=== PATIENT | male | born 1960 | race Hispanic/Latino ===

== ENCOUNTER 2018-07-24 17:19 | Inpatient (IN) | payer SELFPAY ==
[2018-07-24 18:15] LABS: Absolute Lymphocytes (CBC) 0.8 K/uL (0.7-4.9); Absolute Monocytes 0.3 K/uL (0.1-1.3); Absolute Neutrophil 1.9 K/uL (1.8-8.0); Basophils % 0.7 % (0-1.3); Eosinophils % 0.9 % (0-4.4); Hematocrit 45.3 % (39.6-49.0); Lymphocytes % 25.6 % (15.3-44.8); MPV 8.9 fL (7.6-11.3); Monocytes % 10.3 % (3.3-12.3); RBC Red Blood Cell Count 5.22 M/uL (4.33-5.43)
[2018-07-24 18:38] LABS: Albumin 3.4 g/dL (3.4-5.0); Alkaline Phosphatase 453 U/L (45-117); BUN Blood Urea Nitrogen 15 mg/dL (7-18); Bicarbonate 30 mmol/L (21-32); Bilirubin Direct 1.8 mg/dL (0-0.2); Bilirubin Total 2.8 mg/dL (0.2-1.0); Glucose Level 294 mg/dL (74-106); Lipase 187 U/L (73-393); Potassium 3.9 mmol/L (3.5-5.1); Protein, Total 7.3 g/dL (6.4-8.2); Sodium Level 133 mmol/L (136-145)
[2018-07-24 18:49] LABS: ALT/SGPT 406 U/L (12-78); AST/SGOT 373 U/L (15-37)
--- NOTE | 2018-07-24 18:52 | RAD REPORT ---
EXAM DESCRIPTION: US - Abdomen Exam Limited - 07/24/2018 6:15 pm CLINICAL HISTORY: ABD PAIN COMPARISON: No comparisons FINDINGS: The gallbladder demonstrates no gallstones. Gallbladder wall is thickened to 6 mm. The com mon bile duct is normal measuring 4 mm. The liver demonstrates no findings of intrahepatic biliary dilatation. IMPRESSION: Gallbladder wall thickening is present, nonspecific finding. This can be result hypoalbu minemia or underlying liver disease.
[2018-07-24] MEDS ORDERED: NA CHLORIDE 0.9% 1,000 ML ONE (19:10)
--- NOTE | 2018-07-24 19:23 | ER ---
Nurse's Notes [facility] Name: Baljinder Crawford Age: 58 yrs Sex: Male : 1960 Arrival Date: 07/24/2018 Time: 17:24 Bed 30 Private MD: Diagnosis: Abnormal results of liver function studies;Upper abdominal pain, unspecified Presentation: 07/24 17:35 Presenting complaint: Patient states: Sent to ER to be evaluated after clinic showed aj elevated liver enzymes on routine lab work. Transition of care: patient was not received from another setting of care. Onset of symptoms. Risk Assessment: Do you want to hurt yourself or someone else? Patient reports no desire to harm self or others. Initial Sepsis Screen: Does the patient meet any 2 criteria? No. Patient's initial sepsis screen is negative. Does the patient have a suspected source of infection? No. Patient's initial sepsis screen is negative. Care prior to arrival: None. 17:35 Method Of Arrival: Ambulatory aj 17:35 Acuity: CELESTINA 3 aj Triage Assessment: 17:36 General: Appears in no apparent distress. comfortable, Behavior is calm, cooperative, aj appropriate for age. Pain: Denies pain. Neuro: Level of Consciousness is awake, alert, obeys commands, Oriented to person, place, time, situation, Appropriate for age. Respiratory: Airway is patent Respiratory effort is even, unlabored, Respiratory pattern is regular, symmetrical. Derm: Skin is intact, is healthy with good turgor, Skin is pink, warm \T\ dry. normal. Historical: - Allergies: 17:36 No Known Allergies; aj - PMHx: 17:36 Hypertension; Diabetes - NIDDM; aj - PSHx: 17:36 None; aj - Immunization history:: Adult Immunizations up to date. - Social history:: Smoking status: Patient/guardian denies using tobacco, Patient uses alcohol, on a daily basis. - Ebola Screening: : Patient negative for fever greater than or equal to 101.5 degrees Fahrenheit, and additional compatible Ebola Virus Disease symptoms Patient denies exposure to infectious person Patient denies travel to an Ebola-affected area in the 21 days before illness onset No symptoms or risks identified at this time. Screenin:40 Abuse screen: Denies threats or abuse. Denies injuries from another. Nutritional ca1 screening: No deficits noted. Tuberculosis screening: No symptoms or risk factors identified. Fall Risk None identified. Assessment: 17:40 General: Appears in no apparent distress. uncomfortable, Behavior is calm, cooperative, ca1 appropriate for age, Tiana, RN at bedside to translate. . Pain: Complains of pain in Upper abdomen. Pain does not radiate. Pain currently is 3 out of 10 on a pain scale. Neuro: Level of Consciousness is awake, alert, obeys commands, Oriented to person, place, time, situation. Cardiovascular: Heart tones S1 S2 present Patient's skin is warm and dry. Respiratory: Airway is patent Respiratory effort is even, unlabored, Respiratory pattern is regular, symmetrical. GI: Abdomen is round non-distended, Bowel sounds present X 4 quads. Abd is soft Abdomen is tender to palpation in right upper quadrant and left upper quadrant. GI: Patient currently denies constipation, diarrhea, nausea. : No signs and/or symptoms were reported regarding the genitourinary system. EENT: No signs and/or symptoms were reported regarding the EENT system. Derm: Skin is intact, is healthy with good turgor, Skin is pink, warm \T\ dry. Musculoskeletal: Circulation, motion, and sensation intact. 18:23 Reassessment: US at bedside. ca1 18:50 Reassessment: Received a call from lab with critical levels. Notified ZINA Garrett of rb1 critical AST 373, ALT 406. 19:14 Reassessment: Patient appears in no apparent distress at this time. Patient and/or ca1 family updated on plan of care and expected duration. Pain level reassessed. Patient is alert, oriented x 3, equal unlabored respirations, skin warm/dry/pink. 20:20 Reassessment: Patient appears in no apparent distress at this time. Patient is alert, rr5 oriented x 3, equal unlabored respirations, skin warm/dry/pink. awaiting for CT with contrast at 2120H Patient denies pain at this time. 21:40 Reassessment: Patient appears in no apparent distress at this time. Patient is alert, rr5 oriented x 3, equal unlabored respirations, skin warm/dry/pink. informed the patient no metformin for 48 hours. they will bring their home medication to confirm if he is taking metformin, he cannot recall the name of the drug. no complaints made. Patient denies pain at this time. Patient states feeling better. Patient states symptoms have improved. Vital Signs: 17:36 BP 154 / 84; Pulse 87; Resp 20; Temp 98.5; Pulse Ox 97% on R/A; Weight 89.81 kg; Height aj 5 ft. 10 in. (177.80 cm); 18:30 BP 129 / 79; Pulse 91; Resp 18; Pulse Ox 98% ; ca1 19:15 BP 154 / 88; Pulse 77; Resp 16 S; Pulse Ox 97% on R/A; rv 20:27 BP 136 / 85; Pulse 83; Resp 17; Pulse Ox 96% ; Pain 0/10; rr5 21:53 BP 126 / 71; Pulse 80; Resp 17; Pulse Ox 99% ; Pain 0/10; rr5 17:36 Body Mass Index 28.41 (89.81 kg, 177.80 cm) aj ED Course: 17:24 Patient arrived in ED. rg4 17:36 No Stack, JOSETTE is Primary Nurse. ca1 17:36 Triage completed. aj 17:36 Arm band placed on left wrist. Patient placed in an exam room. aj 17:37 Tami Metzger FNP-C is PHCP. kb 17:37 Johann Abraham MD is Attending Physician. kb 17:40 Patient has correct armband on for positive identification. Placed in gown. Bed in low ca1 position. Call light in reach. Side rails up X 1. Pulse ox on. NIBP on. Warm blanket given. 17:58 Initial lab(s) drawn, by id, sent to lab. Inserted saline lock: 20 gauge in left tm3 antecubital area, using aseptic technique. 18:18 US Abdomen Limited In Process Unspecified. EDMS 18:50 Notified Nurse Practitioner and/or Physician Human Resources Operations Specialist of a critical lab result(s), AST ca1 373, ALT 406. 18:59 Oral contrast given. vm2 19:23 Domingo Ge MD is Hospitalizing Provider. kb 20:[address] vm2 21:11 CT completed. Patient tolerated procedure well. Patient moved back from CT. vm2 21:50 No provider procedures requiring assistance completed. Patient admitted, IV remains in rr5 place. intact, No redness/swelling at site. Administered Medications: 18:58 Drug: NS 0.9% 1000 ml Route: IV; Rate: 1000 ml; Site: left antecubital; ca1 20:27 Follow up: Response: No adverse reaction; IV Status: Completed infusion; IV Intake: rr5 1000ml Intake: 20:27 IV: 1000ml; Total: 1000ml. rr5 Outcome: 19:23 Decision to Hospitalize by Provider. kb 21:50 Admitted to Med/surg accompanied by tech, via wheelchair, room 211, with chart, Report rr5 called to carut 21:50 Condition: stable 21:50 Instructed on the need for admit. 22:15 Patient left the ED. fc Signatures: Dispatcher [employer] ED[facility] Tami Metzger, CUSTOM DECORATING CONSULTANT-C CUSTOM DECORATING CONSULTANT-Ckb Taj Khan tm3 Anika Sheets, RN RN Cat Sanches RN RN Peri Carreon, RN RN rb1 Carla Lancaster rg4 Maylin Orellana 2 Hernandez Pacheco RN RN rv Charli Doss RN RN rr5 No Stack RN RN ca1 Corrections: (The following items were deleted from the chart) 18:53 18:50 Reassessment: Notified ZINA Garrett of critical AST 373, ALT 406. rb1 rb1
--- NOTE | 2018-07-24 19:23 | EDPHYS ---
Physician Documentation [facility] Name: Baljinder Crawford Age: 58 yrs Sex: Male : 1960 Arrival Date: 07/24/2018 Time: 17:24 Bed 30 Private MD: ED Physician Johann Abraham HPI: 07/24 17:47 This 58 yrs old Male presents to ER via Ambulatory with complaints of Abnormal kb Lab Results. 17:47 Pt reports he just started seeing a doctor and was diagnosed with diabetes and kb hypertension. States they did routine blood work and started him on medications for diabetes and hypertension. Was told to come to the ER for evaluation due to abnormal liver tests. Severity of symptoms: At their worst the symptoms were mild in the emergency department the symptoms are unchanged. The patient has not experienced similar symptoms in the past. The patient has been recently seen by a physician: the patient's primary care provider, earlier today. Historical: - Allergies: 17:36 No Known Allergies; aj - PMHx: 17:36 Hypertension; Diabetes - NIDDM; aj - PSHx: 17:36 None; aj - Immunization history:: Adult Immunizations up to date. - Social history:: Smoking status: Patient/guardian denies using tobacco, Patient uses alcohol, on a daily basis. - Ebola Screening: : Patient negative for fever greater than or equal to 101.5 degrees Fahrenheit, and additional compatible Ebola Virus Disease symptoms Patient denies exposure to infectious person Patient denies travel to an Ebola-affected area in the 21 days before illness onset No symptoms or risks identified at this time. ROS: 17:47 Constitutional: Negative for fever, chills, and weight loss, Neck: Negative for injury, kb pain, and swelling, Cardiovascular: Negative for chest pain, palpitations, and edema, Respiratory: Negative for shortness of breath, cough, wheezing, and pleuritic chest pain, Abdomen/GI: Negative for abdominal pain, nausea, vomiting, diarrhea, and constipation, MS/Extremity: Negative for injury and deformity, Skin: Negative for injury, rash, and discoloration, Neuro: Negative for headache, weakness, numbness, tingling, and seizure. Exam: 17:47 Constitutional: This is a well developed, well nourished patient who is awake, alert, kb and in no acute distress. Head/Face: Normocephalic, atraumatic. Chest/axilla: Normal chest wall appearance and motion. Nontender with no deformity. No lesions are appreciated. Cardiovascular: Regular rate and rhythm with a normal S1 and S2. No gallops, murmurs, or rubs. Normal PMI, no JVD. No pulse deficits. Respiratory: Lungs have equal breath sounds bilaterally, clear to auscultation and percussion. No rales, rhonchi or wheezes noted. No increased work of breathing, no retractions or nasal flaring. Skin: Warm, dry with normal turgor. Normal color with no rashes, no lesions, and no evidence of cellulitis. MS/ Extremity: Pulses equal, no cyanosis. Neurovascular intact. Full, normal range of motion. Neuro: Awake and alert, GCS 15, oriented to person, place, time, and situation. Cranial nerves II-XII grossly intact. Motor strength 5/5 in all extremities. Sensory grossly intact. Cerebellar exam normal. Normal gait. 17:47 Abdomen/GI: Inspection: abdomen appears normal, Bowel sounds: normal, in all quadrants, kb Palpation: soft, in all quadrants, mild abdominal tenderness, in the right upper quadrant and left upper quadrant. Vital Signs: 17:36 BP 154 / 84; Pulse 87; Resp 20; Temp 98.5; Pulse Ox 97% on R/A; Weight 89.81 kg; Height aj 5 ft. 10 in. (177.80 cm); 18:30 BP 129 / 79; Pulse 91; Resp 18; Pulse Ox 98% ; ca1 19:15 BP 154 / 88; Pulse 77; Resp 16 S; Pulse Ox 97% on R/A; rv 20:27 BP 136 / 85; Pulse 83; Resp 17; Pulse Ox 96% ; Pain 0/10; rr5 21:53 BP 126 / 71; Pulse 80; Resp 17; Pulse Ox 99% ; Pain 0/10; rr5 17:36 Body Mass Index 28.41 (89.81 kg, 177.80 cm) aj MDM: 17:37 Patient medically screened. kb 17:46 Data reviewed: vital signs, nurses notes. Data interpreted: Pulse oximetry: on room air kb is 97 %. Interpretation: normal. 19:21 Counseling: I had a detailed discussion with the patient and/or guardian regarding: the kb historical points, exam findings, and any diagnostic results supporting the discharge/admit diagnosis, lab results, radiology results, the need for further work-up and treatment in the hospital. Physician consultation: Domingo Ge MD was contacted at 19:22, regarding admission, to the medical/surgical unit. and will see patient in ED, shortly. Admission orders: after a detailed discussion of the patient's condition and case, the admit orders are written by ca. 07/24 17:46 Order name: Basic Metabolic Panel; Complete Time: 18:50 kb 07/24 17:46 Order name: CBC with Diff; Complete Time: 18:19 kb 07/24 17:46 Order name: Hepatic Function; Complete Time: 18:50 kb 07/24 17:46 Order name: Lipase; Complete Time: 18:50 kb 07/24 21:47 Order name: Urine Dipstick--Ancillary (enter results) ag4 07/24 22:03 Order name: Urine Dipstick-Ancillary; Complete Time: 22:04 EDMS 07/24 17:46 Order name: IV Saline Lock; Complete Time: 17:58 kb 07/24 17:46 Order name: Labs collected and sent; Complete Time: 17:58 kb 07/24 17:46 Order name: US Abdomen Limited; Complete Time: 18:54 kb 07/24 18:54 Order name: CT Abd/Pelvis - W/Contrast kb Administered Medications: 18:58 Drug: NS 0.9% 1000 ml Route: IV; Rate: 1000 ml; Site: left antecubital; ca1 20:27 Follow up: Response: No adverse reaction; IV Status: Completed infusion; IV Intake: rr5 1000ml Disposition: 07/25 07:02 Co-signature as Attending Physician, Johann Abraham MD. rn Disposition: 07/24/18 19:23 Hospitalization ordered by Domingo Ge for Observation. Preliminary diagnosis are Abnormal results of liver function studies, Upper abdominal pain, unspecified. - Bed requested for Telemetry/MedSurg (observation). - Status is Observation. fc - Condition is Stable. - Problem is new. - Symptoms are unchanged. UTI on Admission? No Signatures: Dispatcher [employer] [facility] Tami Metzger, Margy Foster RN RN mw Myers, Amanda, RN RN aj Chretien, Felicia, RN RN Johann Abraham MD MD rn Seda, JOSETTE Sarabia RN ca1 Charli Doss RN rr5 Corrections: (The following items were deleted from the chart) 07/24 17:48 17:47 The patient has not recently seen a physician, [facility] 19:23 17:47 Constitutional: This is a well developed, well nourished patient who is awake, kb alert, and in no acute distress. Head/Face: Normocephalic, atraumatic. Chest/axilla: Normal chest wall appearance and motion. Nontender with no deformity. No lesions are appreciated. Cardiovascular: Regular rate and rhythm with a normal S1 and S2. No gallops, murmurs, or rubs. Normal PMI, no JVD. No pulse deficits. Respiratory: Lungs have equal breath sounds bilaterally, clear to auscultation and percussion. No rales, rhonchi or wheezes noted. No increased work of breathing, no retractions or nasal flaring. Abdomen/GI: Soft, non-tender, with normal bowel sounds. No distension or tympany. No guarding or rebound. No evidence of tenderness throughout. Skin: Warm, dry with normal turgor. Normal color with no rashes, no lesions, and no evidence of cellulitis. MS/ Extremity: Pulses equal, no cyanosis. Neurovascular intact. Full, normal range of motion. Neuro: Awake and alert, GCS 15, oriented to person, place, time, and situation. Cranial nerves II-XII grossly intact. Motor strength 5/5 in all extremities. Sensory grossly intact. Cerebellar exam normal. Normal gait. kb 20:14 19:23 Hospitalization Ordered by Domingo Ge MD for Observation. Preliminary mw diagnosis is Abnormal results of liver function studies; Upper abdominal pain, unspecified. Bed requested for Telemetry/MedSurg (observation). Status is Observation. Condition is Stable. Problem is new. Symptoms are unchanged. UTI on Admission? No. kb 22:15 20:14 07/24/2018 19:23 Hospitalization Ordered by Domingo Ge MD for Observation. fc Preliminary diagnosis is Abnormal results of liver function studies; Upper abdominal pain, unspecified. Bed requested for Telemetry/MedSurg (observation). Status is Observation. Condition is Stable. Problem is new. Symptoms are unchanged. UTI on Admission? No. mw
[2018-07-24 22:01] LABS: Urine Blood NEGATIVE (NEG); Urine Glucose 1+ (NEG); Urine Protein 1+ (NEG)
[2018-07-24] MEDS ORDERED: ONDANSETRON 4 MG/2 ML VIAL IV PRN (22:42)
--- NOTE | 2018-07-24 23:00 | P.HP ---
Certification for Inpatient Patient admitted to: Inpatient With expected LOS: >2 Midnights Practitioner: I am a practitioner with admitting privileges, knowledge of patient current condition, hospital course, and medical plan of care. Services: Services provided to patient in accordance with Admission requirements found in Title 42 Section 412.3 of the Code of Federal Regulations Patient History Date of Service: 07/24/18 Reason for admission: abnormal liver enzymes History of Present Illness: Mr Loyola is a 58 years old male with who was recently diagnosed with DM II, and HTN, who went to his pcp today for control. He got a lab work done, and was found abnormal liver enzymes. Subsequently, the patient was referred to come to ED for further evaluation. Mr Loyola states that has had feeling that the food stuck in his stomach, also is complaining of progressive weakness. He denied any nausea, vomiting or diarrhea, no fever either. He drinks beer only on the weekends, however, he states that was a heavy drinker in the past. Lab work shows increased transaminases, bilirubin and alkaline phosphate. Abdominal US showed gallbladder wall thickening, subsequent CT abd/pelvis report signs concerning for duodenitis. No stones seen or ductal dilation. Allergies No Known Allergies Allergy (Verified 07/24/18 22:41) Home Medications: Lisinopril/Hydrochlorothiazide [Lisinopril-Hctz 10-12.5 mg Tab] 1 each PO DAILY 07/24/18 Metformin HCl 1,000 mg PO BID 07/24/18 - Past Medical/Surgical History Has patient received pneumonia vaccine in the past: No Diabetic: Yes -: NIDDM -: Hypertension Past Surgical History: Reviewed- Non-Contributory - Family History Family History: Reviewed- Non-Contributory - Social History Smoking Status: Never smoker Alcohol use: Yes CD- Drugs: No Caffeine use: No Place of Residence: Home Review of Systems 10-point ROS is otherwise unremarkable Physical Examination - Vital Signs Temperature: 98.5 F Blood Pressure: 126/71 Pulse: 80 Respirations: 17 - Physical Exam General: Alert, In no apparent distress HEENT: Atraumatic, PERRLA, Mucous membr. moist/pink, EOMI, Scleral icterus Neck: Supple, 2+ carotid pulse no bruit, No LAD, Without JVD or thyroid abnormality Respiratory: Clear to auscultation bilaterally, Normal air movement Cardiovascular: Regular rate/rhythm, Normal S1 S2 Gastrointestinal: Normal bowel sounds, Tenderness (RUQ and epigastric tenderness to palpation) Musculoskeletal: No tenderness Integumentary: No rashes Neurological: Normal speech, Normal strength at 5/5 x4 extr, Normal tone, Normal affect Lymphatics: No axilla or inguinal lymphadenopathy - Studies Laboratory Data (last 24 hrs) 07/24/18 17:55: WBC 3.0 L, Hgb 15.8, Hct 45.3, Plt Count 111 L 07/24/18 17:55: Sodium 133 L, Potassium 3.9, BUN 15, Creatinine 0.86, Glucose 294 H, Total Bilirubin 2.8 H, AST 373 H*, ALT 406 H*, Alkaline Phosphatase 453 H , Lipase 187 Assessment and Plan - Problems (Diagnosis) (1) Abnormal liver enzymes Current Visit: Yes Status: Acute (2) Diabetes mellitus Current Visit: Yes Status: Acute Qualifiers: Diabetes mellitus type: type 2 Diabetes mellitus [facility] insulin use: without [facility] use Diabetes mellitus complication status: with unspecified complications Qualified Code(s): E11.8 - Type 2 diabetes mellitus with unspecified complications (3) HTN (hypertension) Current Visit: Yes Status: Acute Qualifiers: Hypertension type: essential hypertension Qualified Code(s): I10 - Essential (primary) hypertension - Plan The patient will be admitted to the hospital due to abnormal liver enzymes, no clear etiology yet. Check heptitis panel. Consider malignancy, will order a MRCP to evaluate biliary tree obstruction. Start empiric antibiotic treatment for possible duodenitis. Check HgbA1c, start SSI for BS control. - Advance Directives Does patient have a Living Will: No Does patient have a Durable POA for Healthcare: No - Code Status/Comfort Care Code Status Assessed: Yes Code Status: Full Code
[2018-07-24] MEDS: INSULIN -REGULAR HUMAN 50 UNIT/0.5 ML ML SQ SCH (23:23)
[2018-07-24] MEDS: CIPROFLOXACIN 400mg IV 400 MG/200 ML BAG IV SCH (23:24)
[2018-07-25] MEDS: TRAMADOL HCL 50 MG TAB PO PRN ×2 (00:30→17:52)
[2018-07-25] MEDS: METRONIDAZOLE 500mg IVPB 500 MG/100 ML BAG IV SCH ×3 (00:30→17:51)
[2018-07-25 00:45] VITALS: BMI 28.4
[2018-07-25 06:56] LABS: Absolute Lymphocytes (CBC) 0.8 K/uL (0.7-4.9); Absolute Monocytes 0.4 K/uL (0.1-1.3); Absolute Neutrophil 2.3 K/uL (1.8-8.0); Basophils % 0.5 % (0-1.3); Eosinophils % 1.6 % (0-4.4); Hematocrit 41.3 % (39.6-49.0); MPV 9.6 fL (7.6-11.3); RBC Red Blood Cell Count 4.77 M/uL (4.33-5.43)
[2018-07-25] MEDS: INSULIN -REGULAR HUMAN 50 UNIT/0.5 ML ML SQ SCH ×4 (07:30→22:11)
[2018-07-25 07:39] LABS: AST/SGOT 276 U/L (15-37); Alkaline Phosphatase 412 U/L (45-117); BUN Blood Urea Nitrogen 11 mg/dL (7-18); Bicarbonate 29 mmol/L (21-32); Bilirubin Total 2.9 mg/dL (0.2-1.0); Glucose Level 209 mg/dL (74-106); Potassium 3.5 mmol/L (3.5-5.1); Protein, Total 6.3 g/dL (6.4-8.2); Sodium Level 131 mmol/L (136-145)
[2018-07-25 07:40] LABS: ALT/SGPT 368 U/L (12-78)
[2018-07-25] MEDS ORDERED: INFLUENZA VACCINE (for 3y+) 0.5 ML DOSE IMVAC ONE (08:00)
[2018-07-25] MEDS: CIPROFLOXACIN 400mg IV 400 MG/200 ML BAG IV SCH ×2 (09:04→22:11)
--- NOTE | 2018-07-25 09:34 | RAD REPORT ---
EXAM DESCRIPTION: MRI - Cholangiogram - 07/25/2018 8:29 am CLINICAL HISTORY: evaluate biliary tree obstruction COMPARISON: Abdomen Pelvis W Contrast dated 07/24/2018; Abdomen Exam Limited dated 07/24/2018 FINDINGS: Three-dimensional MRCP was performed using maximum intensity projection reconstruction on the same work station. No intrahepatic biliary tree dilatation is seen. The common bile duct is normal caliber without evide nce of retained stone, stricture or mass. The distal common bile duct through the relatively abrupt c ut off which may be secondary to localized edema. The pancreatic duct is not pathologically dilated. No gallstone is seen. The gallbladder wall is mildly thickened. Limited T2 sequences through the abdomen demonstrates no bulky adenopathy, significant free fluid or abscess. Subtle edema/fluid is seen about the duodenal C-loop. IMPRESSION: No significant biliary obstruction is suspected. Relatively abrupt cut off of the distal common bile duct is seen near the ampulla, favored to be secondary to duodenal inflammation and loca lized edema. Edematous changes and wall thickening in the region of the duodenal C-loop is seen. Duodenitis or ulc er disease are possibilities and upper endoscopy may be of value for further assessment.
[2018-07-25] MEDS ORDERED: D50W 25 GM/50 ML SYRINGE IV PRN (14:01)
[2018-07-25] MEDS ORDERED: GLUCAGON 1 MG/VIAL IM PRN (14:01)
--- NOTE | 2018-07-25 16:35 | PN ---
Date of Progress Note: 07/25/2018 Subjective: The patient seen and examined. Chart reviewed and case discussed with RN. The patient is primarily Kuwaiti speaking, mission commander services used. Medications: List reviewed. Physical Examination: Vital Signs: Temperature 98.6, heart rate 81, blood pressure 123/73, respirations 18, and O2 93% on room air. General: Awake, alert, oriented x3. An ill-appearing male, appears older than stated age. CV: S1 and S2. Regular rate and rhythm. Peripheral pulses present. Respiratory: Clear to auscultation bilaterally. No wheezing or stridor. Gastrointestinal: Abdomen is soft. Mild tenderness to palpation. No guarding or rigidity. Nondist ended. Extremities: No clubbing, cyanosis, or edema. No calf tenderness. Neurologic: Cranial nerves II through XII intact grossly. No focal neurological deficit. Speech is normal. Skin: No rashes. Normal skin turgor. Laboratory Data: Sodium 131, potassium 3.5, chloride 96, CO2 29, BUN 11, creatinine 0.55, glucose 20 9. Hemoglobin A1c 9.7%. Calcium 8, magnesium 1.8, total bilirubin 2.9, AST 276, ALT 368, alkaline p hosphatase 412. WBC 3.5, H and H 14.5 and 41.3, platelets 120, neutrophils 64%. Hepatitis panel pen ding. MRCP shows no significant biliary obstruction suspected relatively abrupt cutoff of the distal common bile duct is seen near the ampulla, favored to be secondary to duodenal inflammation and loca lized edema. Edematous changes and wall thickening in the region of the duodenal C loop is seen. Du odenitis or ulcer disease are possibilities and upper endoscopy may be value to further assess. Assessment And Plan: A 58-year-old male with: 1.Duodenitis. Continue with IV antibiotics. The patient may benefit from EGD. We will consult GI. 2.Abnormal liver enzymes, trending down. Unclear etiology. May be related to obstruction from the duodenitis seen on MRCP. No stones seen. Hepatitis panel is pending. The patient does have history of alcohol use. 3.Diabetes mellitus type 2 with long-term use of insulin, uncontrolled. Hemoglobin A1c greater than 9%. Continue sliding scale insulin. The patient will need diabetic education as an outpatient. 4.Essential hypertension, stable. Resume home medications. 5.Hyponatremia. We will monitor. Continue on IV fluids. 6.Hypocalcemia. 7.Hyperbilirubinemia secondary to above. 8.Gastrointestinal and deep venous thrombosis prophylaxis. SCDs. No chemical anticoagulation due t o possible procedure. We will consult GI. The patient will likely need EGD. Discharge in next 24-4 8 hours depending on clinical response. KWESI Voice ID: [id number] Report ID: [id number]
--- NOTE | 2018-07-25 19:39 | RAD REPORT ---
EXAM DESCRIPTION: CT Abdomen and Pelvis With Intravenous Contrast CLINICAL HISTORY: The patient is 58 years old an dis Male; ABD PAIN. COMPARISON: None. TECHNIQUE: Axial computed tomography images of the abdomen and pelvis with intravenous contrast. Sagittal and co shefali reformatted images were created and reviewed. This CT exam was performed using one or more of t he following dose reduction techniques: Automated exposure control, adjustment of the mA and/or kV ac cording to patient size, and/or use of iterative reconstruction technique. FINDINGS: LUNG BASES: Bibasilar atelectasis/scarring and mild pleural thickening. No focal consolida tion, pleural effusion or pneumothorax. MEDIASTINUM: Small hiatal hernia and distention of the distal esophagus. ABDOMEN: LIVER: Unremarkable. No mass. GALLBLADDER AND BILE DUCTS: Unremarkable. No calcified stones. No ductal dilation. PANCREAS: Unremarkable. No mass. No ductal dilation. SPLEEN: Mild enlargement of the spleen measuring 14.2 cm. ADRENALS: Unremarkable No mass. KIDNEYS AND URETERS: Unremarkable. No solid mass. No hydronephrosis. STOMACH AND BOWEL:There is mural thickening of the duodenum with mild periduodenal fat stranding. Enteric contrast is seen throughout the stomach, small and large bowel. No obstruction or perforation . PELVIS APPENDIX: The appendix is seen and is within normal limits. BLADDER: Unremarkable. No mass. REPRODUCTIVE: Enlarged prostate measuring 5.3 x 4.3 x 4.3 cm. ABDOMEN and PELVIS: INTRAPERITONEAL SPACE: Unremarkable. No free air. No significant fluid collection. BONE/JOINTS: Multi-level degenerative changes of the visualized spine. No acute osseus findings. No d islocation. SOFT TISSUES: Large fat-containing right inguinal hernia. VASCULATURE: Unremarkable. No abdominal aortic aneurysm. LYMPH NODES: Diffuse decreased attenuation of the liver parenchyma. No focal mass or ductal dilation. There is mild fat stranding in the region of the macy hepetus with mildly prominent node of [place] . IMPRESSION: 1. Mild duodenal wall thickening and periduodenal fat stranding as well as prominent por ta hepatic lymph nodes. Finding is non specific although can be seen with infectious or inflammatory duodenitis. 2. Hepatic steatosis. 3. Prostatomegaly. 4. Small hiatal hernia 5. Small hiatal hernia. Electronically signed by: Maury Mayen DO 07/24/2018 9:34 [employer] Due to temporary technical issues with the PACS/Fluency reporting system, reports are being signed by the in house radiologist as a courtesy to ensure prompt reporting. The interpreting radiologist is f ully responsible for the content of the report.
[2018-07-26] MEDS: METRONIDAZOLE 500mg IVPB 500 MG/100 ML BAG IV SCH ×3 (01:38→17:04)
[2018-07-26 06:16] LABS: Absolute Lymphocytes (CBC) 0.9 K/uL (0.7-4.9); Absolute Monocytes 0.5 K/uL (0.1-1.3); Absolute Neutrophil 2.3 K/uL (1.8-8.0); Basophils % 0.4 % (0-1.3); Eosinophils % 1.8 % (0-4.4); Hematocrit 44.1 % (39.6-49.0); Lymphocytes % 22.8 % (15.3-44.8); MPV 9.1 fL (7.6-11.3); Monocytes % 14.6 % (3.3-12.3); RBC Red Blood Cell Count 5.08 M/uL (4.33-5.43)
[2018-07-26 06:39] LABS: AST/SGOT 193 U/L (15-37); Albumin 3.1 g/dL (3.4-5.0); Alkaline Phosphatase 483 U/L (45-117); BUN Blood Urea Nitrogen 10 mg/dL (7-18); Bicarbonate 30 mmol/L (21-32); Bilirubin Total 4.2 mg/dL (0.2-1.0); Glucose Level 236 mg/dL (74-106); Potassium 3.5 mmol/L (3.5-5.1); Protein, Total 6.7 g/dL (6.4-8.2); Sodium Level 132 mmol/L (136-145)
[2018-07-26 06:44] LABS: ALT/SGPT 342 U/L (12-78)
[2018-07-26] MEDS: INSULIN -REGULAR HUMAN 50 UNIT/0.5 ML ML SQ SCH ×3 (07:30→17:03)
[2018-07-26] MEDS ORDERED: LISINOPRIL 10 MG TAB PO SCH (09:00)
[2018-07-26] MEDS ORDERED: hydroCHLOROthiazide 12.5 MG CAP PO SCH (09:00)
[2018-07-26] MEDS ORDERED: HOME MED 1 EA UNK (Lisinopril/Hydrochlorothiazide [Lisinopril-Hctz 10-12.5 Mg Tab] 1 EACH) PO SCH (09:00)
[2018-07-26] MEDS ORDERED: NA CHLORIDE 0.9% 1,000 ML ONE (09:05)
[2018-07-26] MEDS ORDERED: PROPOFOL 200 MG/20 ML VIAL IV ONE ×2 (09:43)
[2018-07-26] MEDS ORDERED: LIDOCAINE 1% MPF 5 ML VIAL ONE (09:43)
[2018-07-26 10:28] VITALS: O2SAT 95
[2018-07-26] MEDS: CIPROFLOXACIN 400mg IV 400 MG/200 ML BAG IV SCH (11:29)
[2018-07-26 12:22] LABS: Protime INR 1.14
[2018-07-26] MEDS: TRAMADOL HCL 50 MG TAB PO PRN (14:44)
[2018-07-26 16:54] VITALS: BP 125/71; TEMP 98.2
[2018-07-26] MEDS ORDERED: PANTOPRAZOLE 40 MG INJ IVP SCH (19:36)
[2018-07-26] MEDS ORDERED: SODIUM CHLORIDE 0.9% 10ML INJ IV PRN (19:36)
--- NOTE | 2018-07-26 20:46 | PN ---
Date of Progress Note: 07/26/2018 Subjective: The patient seen and examined. Chart reviewed and case discussed with RN and Dr. Edd mishra. The patient had an EGD done today and was found to have duodenal ulcer in the bulb; papula did n ot show any mass, however, will need an ERCP. Medications: List reviewed. Physical Examination: Vital Signs: Temperature 97.8, heart rate 72, blood pressure 129/76, respirations 16, O2 of 94% on r oom air. General: Awake, alert, oriented x3. Appears older than stated age, ill-appearing male. CV: S1 and S2. Regular rate and rhythm. Peripheral pulses present. Respiratory: Moving air well bilaterally. No wheezing or stridor. Gastrointestinal: Abdomen is soft. Mild tenderness in the epigastric region. No rebound or guardin g. Positive bowel sounds. Extremities: No clubbing, cyanosis, or edema. Neurologic: Nonfocal. Laboratory Data: Sodium 132, potassium 3.5, chloride 95, CO2 of 30, BUN 10, creatinine 0.63, glucose 236, calcium 8.6, iron 61, TIBC 252, transferrin 180. AST 193, ALT 342, alkaline phosphatase 43, al bumin 3.1. WBC 3.7, H and H 15.1 and 44.1, platelets 118. RADHA screen pending. Hepatitis panel pend ing. Assessment: A 58-year-old male with: 1.Duodenitis. Continue with IV antibiotics. Appreciate GI input. 2.Abnormal liver enzymes including hyperbilirubinemia. Likely due to obstruction. The patient will need ERCP to rule out cholangiocarcinoma and to evaluate the bile duct. Hepatitis panel is pending. The patient does have previous history of alcohol use. 3.Duodenal ulcer. We will continue with IV PPI. 4.Diabetes mellitus type 2 with long-term use of insulin, uncontrolled. We will continue with slidi ng scale insulin. Diabetic education. 5.Essential hypertension, stable. 6.Hyponatremia, improving. We will continue IV fluids. 7.Hypocalcemia. We will replace and monitor. 8.Hyperbilirubinemia secondary to possible biliary obstruction. The patient does have abnormal MRCP . 9.Gastrointestinal and deep venous thrombosis prophylaxis with PPI and SCDs. No chemical anticoagul ation due to recent procedure. Plan: Transfer patient to [facility]. The patient needs ERCP. GI on-call does not perform ERCPs. No other GI available to perform ERCP at this time. Family was updated. All questions answ ered. The patient has been accepted by [facility], however, no beds are available at this time. A nticipate transfer in a.m. depending on bed availability. /ALEXANDRA Voice ID: [id number] Report ID: [id number]
--- NOTE | 2018-07-26 23:02 | OP ---
Surgeon: Chris Cook MD Procedure Performed: Esophagogastroduodenoscopy. Indication For Procedure: Abnormal CAT scan. Also possibility of biliary obstruction, especially lo ok at the duodenum and the niels-ampullary area. Plan For Anesthesia: Monitored anesthesia care. Complexity: Average. Technique: After obtaining informed consent from the patient, explaining risks and complications whi ch include but are not limited to bleeding, infection, perforation, and anesthesia complications, the patient was placed in a left lateral position and sedation was given. Subsequently, the scope was a dvanced into the mouth and carefully guided up till the 3rd portion of the duodenum. Subsequently, a careful examination was performed. Necessary biopsies taken and the scope withdrawn and procedure t erminated in a safe manner. Findings: Esophagus: No gross lesion in the upper and mid esophagus. In the distal esophagus, a sm all hiatal hernia was seen. Stomach: Several erosions were seen in the body of the stomach. In the antrum, moderate patchy eryt les seen. Biopsies were taken from antrum and body. Duodenum: In the bulb mid portion, crated ulcer with some pigmented material was seen. There was no high-risk stigmata. Biopsies were taken from the edges. Very minimal surrounding erythema seen in this area. Even the distal bulb appeared normal. The second and third portion of the duodenum appea red normal without any inflammation or ulceration. Also, brief view of papilla was seen which appear ed to be normal. Complications: None. Tolerance To Anesthesia: Excellent. Postoperative Diagnoses: Hiatal hernia, gastric erosions, duodenal ulcer, no evidence of lesion or m ass in the duodenum that can explain the findings on the imaging as well as his liver enzymes. Plan: 1.Await pathology results. 2.We will put him on PPI. Avoid NSAIDs. 3.We are awaiting hepatitis workup as well, but concerning finding is the persistent elevation of th e ALT and elevation of bilirubin. An obstructive etiology of the biliary tract is possible which has been also looked at at the MRCP which shows an abrupt cutoff in the distal CBD. There is also a po ssibility of alcoholic hepatitis, but given the findings and persistent liver enzyme elevation furthe r investigation with EUS versus actually an ERCP may be beneficial. I will discuss this with Dr. Ethel jaffe and he will take necessary steps if he can get the patient to have an advanced GI see him here. O therwise, he may need to be transferred to a tertiary care center. US/MODL Voice ID: [id number] Report ID: [id number]
--- NOTE | 2018-07-28 14:20 | DS ---
Date of Discharge: 07/26/2018 Date Of Transfer: 07/26/2018. Production Corrugator: Dr. Cook with GI. Procedures: EGD on 07/26/2018 showed duodenal bulb ulcer. A small hiatal hernia is seen. Discharge Diagnoses: 1.Duodenitis. 2.Abnormal liver enzymes. 3.Hyperbilirubinemia. 4.Duodenal ulcer. 5.Diabetes mellitus type 2 with long-term use of insulin, uncontrolled. 6.Essential hypertension. 7.Hyponatremia. 8.Hypocalcemia. Hospital Course: The patient is a 58-year-old male, who was admitted by his PCP for abnormal liver e nzymes. Imaging studies were obtained and CT scan showed some mild duodenal wall thickening and niels duodenal fat stranding as well as prominent macy hepatic lymph nodes likely infectious or inflammato ry, hepatic steatosis, small hiatal hernia. Ultrasound of the abdomen was done to rule out gallstone s. Did see some gallbladder wall thickening, however, no stones. MRCP was done to rule out ductal s tones. No biliary obstruction was seen. There was an abrupt cutoff of the distal common bile duct n ear the ampulla secondary to duodenal inflammation and localized edema. Duodenitis was a concern for possible ulcer. GI was consulted and the patient had EGD done, which showed duodenal ulcer and smal l hiatal hernia. Pathology report from the biopsies showed peptic duodenitis with ulceration, no mal ignancy. From the stomach biopsy showed mild chronic inactive gastritis. No Helicobacter pylori org anisms. No evidence of malignancy. The patient was then recommended to have ERCP due to continuing elevated total bilirubin and elevated liver enzymes in order to rule out any malignancies such as cho langiocarcinoma as no GI was available to perform the ERCP. The patient had to be transferred. The patient was referred over to [facility] city [facility], and he was accepted. The patient was transferred in a stable condition. For physical exam findings, please see progress note dictated on the day of discharge. Total time spent transferring the patient was 39 minutes. /ALEXANDRA Voice ID: [id number] Report ID: [id number]
[2018-07-30 03:57] LABS: Hepatitis A IgM Antibody Nonreactive
[2018-07-30 16:36] LABS: Alpha Fetoprotein-Tumor Marker 1.4 ng/mL (<6.1)
== END 2018-07-26 19:20 | disposition short-term general hospital (02) | DRG 392 ==
LOC: ER 17:19 → ERHOLD 20:16 → 2ND 21:55
PROVIDERS: ADMIT Internal Medicine; ATTEND Family Medicine
PROC: 0DB78ZX Excision of Stomach, Pylorus, Via Natural or Artificial Opening Endoscopic, Diagnostic (ICD-10-PCS; 2018-07-26)
PROC: 0DB68ZX Excision of Stomach, Via Natural or Artificial Opening Endoscopic, Diagnostic (ICD-10-PCS; 2018-07-26)
PROC: 0DB98ZX Excision of Duodenum, Via Natural or Artificial Opening Endoscopic, Diagnostic (ICD-10-PCS; principal; 2018-07-26 09:45)
DX: K29.80 Duodenitis without bleeding (principal); E87.1 Hypo-osmolality and hyponatremia; K26.9 Duodenal ulcer, unspecified as acute or chronic, without hemorrhage or perforation; K44.9 Diaphragmatic hernia without obstruction or gangrene; E80.6 Other disorders of bilirubin metabolism; E11.9 Type 2 diabetes mellitus without complications; Z79.4 Long term (current) use of insulin; I10 Essential (primary) hypertension; E83.51 Hypocalcemia; K76.0 Fatty (change of) liver, not elsewhere classified; K29.50 Unspecified chronic gastritis without bleeding
CPT/HCPCS: 36415; 74177; 74181; 76705; 80048; 80053; 80076; 81003; 82105; 82390; 82962; 83036; 83540; 83690; 83735; 84466; 85025; 85610; 86038; 86255; 86706; 86709; 86803; 88305; 88312; 96360; 99285; J0744; J2704; J7030; Q9967